=== PATIENT | male | born 1985 | race Caucasian/White ===

== ENCOUNTER 2023-10-26 10:35 | Emergency (ER) | payer OTHER, MEDICAID, SELFPAY ==
[2023-10-26 10:41] VITALS: BP 240/130; PULSE 90; RESP 18; TEMP 36.8; O2SAT 98; BMI 29.2
--- NOTE | 2023-10-26 11:04 | CT_ITS ---
The [address] [address] Patient Name: DAVID BUNCH MRN: [id number] date: 1985 Sex: M Assigned Patient Location: ER Current Patient Location: ER Accession/Order Number: [id number] Exam Date: 10/26/2023 11:28 Report Date: 10/26/2023 11:47 At the request of: LUIZA DURON Procedure: CT head/brain wo con EXAM: CT head/brain wo con, CT facial bones wo con HISTORY: Hit in face by scrap metal at work, facial injury COMPARISON: None. TECHNIQUE: Axial noncontrast CT imaging of the head and facial bones was performed with coronal and sagittal reformats. This CT exam was performed using one or more of the following dose reduction techniques: Automated exposure control, adjustment of the MA and/or kV according to patient size, or use of iterative reconstruction technique. FINDINGS: Motion artifact significantly degrades evaluation of the brain component of the study. Soft tissues: Small soft tissue hematoma along the right aspect of the nasal bridge superiorly. No radiopaque foreign body is seen.. Orbits: Globes intact. No fractures or masses. Sinuses: Mucosal retention cyst versus polyp involving the medial left maxillary sinus wall. Midface/nasal cavity: No fractures or masses. Maxilla/mandible: No fractures or destructive lesions. Multiple mandibular teeth dental caries are noted. Calvarium/skull base: No evidence of acute fracture or destructive lesion. Mastoids and middle ears demonstrate no substantial mucosal disease. Brain: No acute intracranial hemorrhage. No acute large vascular territory infarct. No mass lesion or mass effect. No hydrocephalus. CT/CT head/brain wo con IMPRESSION: 1. No acute intracranial process given motion degraded intracranial exam. 2. No facial bone fracture. 3. Small soft tissue hematoma along the right superior aspect of the nasal soft tissues without radiopaque foreign body seen. 4. Dental caries of the mandibular teeth. Electronically authenticated by: KHARI MILLER Date: 10/26/2023 11:47
--- NOTE | 2023-10-26 11:04 | CT_ITS ---
The [address] [address] Patient Name: DAVID BUNCH MRN: [id number] date: 1985 Sex: M Assigned Patient Location: ER Current Patient Location: Accession/Order Number: [id number] Exam Date: 10/26/2023 11:28 Report Date: 10/26/2023 11:47 At the request of: LUIZA DURON Procedure: CT facial bones wo con EXAM: CT head/brain wo con, CT facial bones wo con HISTORY: Hit in face by scrap metal at work, facial injury COMPARISON: None. TECHNIQUE: Axial noncontrast CT imaging of the head and facial bones was performed with coronal and sagittal reformats. This CT exam was performed using one or more of the following dose reduction techniques: Automated exposure control, adjustment of the MA and/or kV according to patient size, or use of iterative reconstruction technique. FINDINGS: Motion artifact significantly degrades evaluation of the brain component of the study. Soft tissues: Small soft tissue hematoma along the right aspect of the nasal bridge superiorly. No radiopaque foreign body is seen.. Orbits: Globes intact. No fractures or masses. Sinuses: Mucosal retention cyst versus polyp involving the medial left maxillary sinus wall. Midface/nasal cavity: No fractures or masses. Maxilla/mandible: No fractures or destructive lesions. Multiple mandibular teeth dental caries are noted. Calvarium/skull base: No evidence of acute fracture or destructive lesion. Mastoids and middle ears demonstrate no substantial mucosal disease. Brain: No acute intracranial hemorrhage. No acute large vascular territory infarct. No mass lesion or mass effect. No hydrocephalus. CT/CT facial bones wo con IMPRESSION: 1. No acute intracranial process given motion degraded intracranial exam. 2. No facial bone fracture. 3. Small soft tissue hematoma along the right superior aspect of the nasal soft tissues without radiopaque foreign body seen. 4. Dental caries of the mandibular teeth. Electronically authenticated by: KHARI MILLER Date: 10/26/2023 11:47
--- NOTE | 2023-10-26 11:11 | ED_ITS ---
HPI - General Adult General Chief complaint: Head Injury Stated complaint: FACIAL INJRUY/ HEAD INJURY Time Seen by Provider: 10/26/23 10:49 Source: patient Mode of arrival: walk-in History of Present Illness HPI narrative: Patient is a 38-year-old male who is presenting to the Emergency Room with chief complaint of closed head injury with a softball size piece of metal that had accidentally kicked back and hit patient to the nasal bridge. 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 Patient works at [employer]. Patient drove to the Emergency Room. Patient has blood and abrasion to nasal bridge, possible laceration, there is dried blood over that. This of the cleaning to see if patient needs a suture or not. Patient does have a headache. Patient does have bilateral frontal headache, pain and nasal bridge. Patient's boss stated that he was dizzy and a little unsteady when he was removed from the skidster. Patient does not recall this. Patient has a headache, no nausea. Patient blood pressure was extremely elevated. Patient says that he takes lisinopril 20 mg daily at lunch time with a baby aspirin. Patient did not take his medicine today. Also because patient's in the Emergency Room and having pain patient thinks his blood pressure is elevated because of this. Patient does have a manufacturing maintenance manager in [place] that he sees. Patient says he is compliant with taking medication everyday at lunch. He has not had it today. Patient did not have a headache before the injury, patient ddoes not believe his headache is secondary to his blood pressure being elevated. Bilateral manual blood pressures were done, equal in both arms by triage nurse Claudette LUCERO. They were equal. . All systems are negative except as noted/marked. All systems reviewed and otherwise negative. . Nurses note and vital signs reviewed and patient is not hypoxic. Patient smells of significant cigarette/tobacco use. General: The patient appears well and in no apparent distress. Patient is resting comfortably on cart. Patient is not toxic, lethargic, or listless Skin: Warm, dry, no pallor noted. There is no rash noted. No petechiae, purpura. Head: Normocephalic, Patient has moderate tenderness to palpation to the nasal bridge, patient has dry blood over the areas well, unceertain if there is a laceration versus abrasion. Patient has no midline or paracervical tenderness to palpation. Full range of motion of cervical spine with no difficulty. Patient does not have any dental pain. Patient does have moderate tenderness to bilateral superior orbital area with no ecchymosis, no hematoma, no other injury besides nasal bridge. Patient has no pain bilateral zygomatic arch, no other facial bone tenderness to palpation. There was a laceration abrasion noted. Eye: Normal conjunctiva, no drainage, EOMI. PERRL Ears, Nose, Mouth, and Throat: oral mucosa is moist. Nares patent. Mouth without vesicles. Cardiovascular: Regular Rate and Rhythm, no murmur, gallop, rub Respiratory: Patient is in no distress, no accessory muscle use, lungs are clear to auscultation, no wheezing, rales or rhonchi Back: non-tender, no CVA tenderness bilaterally to percussion. No CT LS midline pain GI: soft, no tenderness to palpation, no masses appreciated. No rebound, guarding, or rigidity noted. No flank pain bilateral, No distention Musculoskeletal: Patient has full range of motion of all of the extremities, no motor, sensory, or focal neurological deficits Neurological: A&O x3, normal speech Psychiatric: Cooperative Related Data Home Medications Medication Instructions Recorded Confirmed aspirin 81 mg tablet,delayed 81 mg PO DAILY 10/26/23 10/26/23 release lisinopril 20 mg tablet 20 mg PO DAILY 10/26/23 10/26/23 Allergies Allergy/AdvReac Type Severity Reaction Status Date / Time Sulfa (Sulfonamide AdvReac Unknown Verified 10/26/23 10:48 Antibiotics) tramadol [From Ultram] AdvReac Unknown Verified 10/26/23 10:48 Exam Constitutional Vital Signs, click to edit/add: Last Vital Signs Temp 98.2 F 10/26/23 10:41 Pulse 90 10/26/23 10:41 Resp 18 10/26/23 10:41 BP 200/100 H 10/26/23 12:43 Pulse Ox 98 10/26/23 10:41 O2 Del Method Room Air 10/26/23 10:41 Course Vital Signs Vital signs: Vital Signs Temperature 98.2 F 10/26/23 10:41 Pulse Rate 90 10/26/23 10:41 Respiratory Rate 18 10/26/23 10:41 Blood Pressure 240/130 H 10/26/23 10:41 Pulse Oximetry 98 10/26/23 10:41 Oxygen Delivery Method Room Air 10/26/23 10:41 Temperature 98.2 F 10/26/23 10:41 Pulse Rate 90 10/26/23 10:41 Respiratory Rate 18 10/26/23 10:41 Blood Pressure 200/100 H 10/26/23 12:43 Pulse Oximetry 98 10/26/23 10:41 Oxygen Delivery Method Room Air 10/26/23 10:41 Medical Decision Making MDM Narrative Medical decision making narrative: Secondary to headache, elevated blood pressure, and traumatic injury, patient had a CT of the head and facial bones. Patient may have nasal bridge fracture. Patient was given Tylenol for headache, was given a metoprolol to help with his blood pressure in the Emergency Room, but he has asymptomatic blood pressure at this time and does take lisinopril 20 mg daily lunchtime, he did not have his dose today. CT of head and facial bones show no nasal fracture, no other acute pathology.Patient was given metoprolol 50 mg tablet in the Emergency Room. Patient still needs to take his lisinopril 20 mg tablet. Patient's manual blood pressures at discharge was right arm was 200/100 and left arm was 196/104. Patient had education on using ice 20 minutes on, 20 minutes off. Patient will alternate Tylenol and anti-inflammatories and 4 hours as well. Patient will follow-up with occupational health clinic, restrictions were given. Patient headache was better with Tylenol, no other questions at discharge. Discharge Plan Discharge Chief Complaint: Head Injury Clinical Impression: Abrasion, nose without infection, Closed head injury, Headache, Nasal contusion Patient Disposition: Home, Self-Care Condition: Fair Prescriptions / Home Meds: No Action lisinopril 20 mg tablet 20 mg PO DAILY aspirin 81 mg tablet,delayed release (DR/EC) 81 mg PO DAILY Instructions: Head Injury (ED), Abrasion (ED), Ice Pack Application (ED), Facial Contusion (ED), General Headache (ED) Additional Instructions: Use ice 20 minutes on, 20 minutes off. Alternate Tylenol and Motrin, Advil, ibuprofen as needed every 4 hours to help with headache or pain. Use topical antibiotic ointment 3-4 times a day Follow-up with occupational health clinic Today to make an appointment for follow-up visit. Stand Alone Forms: Portal Instructions Referrals: [facility] [Outside] - 1 week Gilbert Burks MD [Primary Care Provider] - 1 week
[2023-10-26] MEDS: METOPROLOL SUCCINATE 50 MG TAB.ER.24H PO (11:26)
[2023-10-26] MEDS: ACETAMINOPHEN 500 MG TABLET PO (11:34)
[2023-10-26] MEDS: BACITRACIN 0.9 GM PACKET 1 PACKET TOPICAL (11:34)
[2023-10-26 12:43] VITALS: BP 196/104; BP 200/100
== END 2023-10-26 13:25 | disposition home or self-care (01) ==
PROVIDERS: Emergency Provider Emergency Medicine; PCP Family Medicine
DX: S09.8XXA Other specified injuries of head, initial encounter (principal); R51.9 Headache, unspecified; S00.31XA Abrasion of nose, initial encounter; S00.33XA Contusion of nose, initial encounter; W20.8XXA Other cause of strike by thrown, projected or falling object, initial encounter; I10 Essential (primary) hypertension
CPT/HCPCS: 70450; 70486; 99284